=== PATIENT | female | born 1965 | race Caucasian/White ===

== ENCOUNTER 2017-09-27 19:03 | Emergency (ER) | payer BC ==
[2017-09-27 19:39] VITALS: BP 155/85
--- NOTE | 2017-09-27 20:10 | UC ---
UC General HPI - HPI Summary HPI Summary: 1. PT C/O COUGH AND CHEST CONGESTION FOR 2 DAYS. ADMITS TO OCCASIONAL WHEEZES. NO FEVER OR SOB. EXPOSED TO BRONCHITIS. 2. C/O INFECTION TO R UPPER GUM AT A RECENT DENTAL EXTRACTION SITE. NOTES AREA SORE AND A LITTLE SWOLLEN. - History of Current Complaint Hx Obtained From: Patient Hx Last Menstrual Period: 11/06/12 Onset/Duration: Gradual Onset Timing: Constant Pain Intensity: 4 Aggravating: NOTHING Alleviating: NOTHING Associated Signs & Symptoms: Positive: Cough. Negative: Chest Pain, Fever <Sangeeta Vernon - Last Filed: 09/27/17 20:16> <Mandeep Marx - Last Filed: 09/27/17 20:29> - History of Current Complaint Chief Complaint: UCRespiratory Stated Complaint: COUGH Time Seen by Provider: 09/27/17 19:59 - Allergy/Home Medications Allergies/Adverse Reactions: Allergies Allergy/AdvReac Type Severity Reaction Status Date / Time psyllium Allergy Swelling Verified 09/27/17 19:30 Of Face,Lips,& Throat LATEX Allergy Blisters Uncoded 09/27/17 19:30 Home Medications: Home Medications Gabapentin CAP(*) [Neurontin 300 CAP(*)] 100 mg PO TID 09/27/17 [History Confirmed 09/27/17] PMH/Surg Hx/FS Hx/Imm Hx - Additional Past Medical History Additional PMH: CHRONIC PAIN, SJOGRENS Endocrine History: Thyroid Disease - Surgical History Surgical History: Yes Surgery Procedure, Year, and Place: 1998 BILATERAL TUBAL LIGATION [place]. 1985, 1987 C SECTIONS, [place] [facility] [place]. 2010 CARPAL TUNNEL RELEASE - RIGHT [place]. - Family History Known Family History: Positive: None - Social History Occupation: Employed Full-time Lives: With Family Alcohol Use: None Substance Use Type: None Smoking Status (MU): Never Smoked Tobacco Have You Smoked in the Last Year: No - Immunization History Vaccination Up to Date: Yes <Sangeeta Vernon - Last Filed: 09/27/17 20:16> Review of Systems Constitutional: Negative Skin: Negative Eyes: Negative ENT: Dental Pain Respiratory: Cough Cardiovascular: Negative Gastrointestinal: Negative Genitourinary: Negative Motor: Negative Neurovascular: Negative Musculoskeletal: Negative Neurological: Negative Psychological: Negative Is Patient Immunocompromised?: No All Other Systems Reviewed And Are Negative: Yes <Dev Vernonie - Last Filed: 09/27/17 20:16> Physical Exam Triage Information Reviewed: Yes Appearance: Well-Appearing Vital Signs: Initial Vital Signs Temp 99.2 F 09/27/17 19:25 Pulse 73 09/27/17 19:25 Resp 19 09/27/17 19:25 BP 155/85 09/27/17 19:25 Pulse Ox 97 09/27/17 19:25 Vital Signs Reviewed: Yes Eyes: Positive: Conjunctiva Clear ENT: Positive: Pharynx normal, TMs normal. Negative: Nasal congestion, Nasal drainage Dental: Positive: Other: - Mild eryhtema and swelling to side of gum at the extraction site. tender but not fluctuant Neck: Positive: Supple, Nontender, No Lymphadenopathy Respiratory: Positive: Lungs clear, Decreased breath sounds, Other: - cough is congested. Cardiovascular: Positive: RRR, No Murmur Abdomen Description: Positive: Nontender, No Organomegaly, Soft Bowel Sounds: Positive: Present Musculoskeletal: Positive: ROM Intact Neurological: Positive: Alert Psychological: Positive: Age Appropriate Behavior Skin Exam: Normal <SauloSangeeta - Last Filed: 09/27/17 20:16> Vital Signs: Initial Vital Signs Temp 99.2 F 09/27/17 19:25 Pulse 73 09/27/17 19:25 Resp 19 09/27/17 19:25 BP 155/85 09/27/17 19:25 Pulse Ox 97 09/27/17 19:25 <Mandeep Marx - Last Filed: 09/27/17 20:29> Course/Dx - Course Course Of Treatment: no known hx htn. pt to have BP recheck on f/u appt. may be pain related from gum. - Differential Dx - Multi-Symptom Provider Diagnoses: R upper gum infection. bronchitis. <Sangeeta Vernon - Last Filed: 09/27/17 20:16> Discharge - Sign-Out/Discharge Documenting (check all that apply): Discharge/Admit/Transfer - Billing Disposition and Condition Condition: STABLE Disposition: HOME <Sangeeta Vernon - Last Filed: 09/27/17 20:16> - Billing Disposition and Condition Condition: STABLE Disposition: HOME <Mandeep Marx - Last Filed: 09/27/17 20:29> - Discharge Plan Condition: Stable Disposition: HOME Prescriptions: Amoxicillin/Clavulanate TAB* [Augmentin TAB 875*] 875 mg PO BID #14 tab Patient Education Materials: Dental Abscess (ED), Acute Bronchitis (ED) Referrals: Enedelia Tony MD [Primary Care Provider] - 5 Days Additional Instructions: FOLLOW UP WITH YOU DENTIST THIS WEEK Per institutional requirements, I have reviewed the chart, however, I was not consulted specifically or made aware of this patient by the above midlevel provider. I did not personally evaluate, interact with , or disposition this patient.
[2017-09-27] MEDS ORDERED: Amoxicillin/Clavulanate TAB* 875 MG PO ONE (20:12)
== END 2017-09-27 20:26 | disposition home or self-care (01) ==
LOC: UCCORT 19:03
DX: J40 Bronchitis, not specified as acute or chronic (principal); K05.10 Chronic gingivitis, plaque induced; M35.00 Sjogren syndrome, unspecified; E07.9 Disorder of thyroid, unspecified
CPT/HCPCS: 99202; A9270-GY; G0463